=== PATIENT | female | born 1985 | race Caucasian/White ===

== ENCOUNTER 2017-08-19 09:13 | Emergency (ER) | payer BC ==
--- NOTE | 2017-08-19 09:38 | Emergency Department Record ---
History of Present Illness - General Chief Complaint: Back Pain/Injury Stated Complaint: BACK PAIN Time Seen by Provider: 08/19/17 09:26 Source: Patient - History of Present Illness Initial Comments: The patient had a rhizotomy in mid June of this year she thinks around L4- L5. She has not improved since this procedure. This morning she woke up with pain in her low back/tailbone region with no radiation down her legs, no urinary incontinence/retention, and no injury. She denies other related symptoms of f,c,URI sx, AP, flank pain. She knows she has a kidney stone, but doesn't think her pain is from that. MD Complaint: Back pain Onset/Timin -: Days(s) Similar Symptoms Previously: Yes Place: Home Severity: Severe Severity scale (1-10): 10 Quality: Aching, Sharp Consistency: Constant Improves With: None Worsens With: None Context: Unknown Associated Symptoms: Denies other symptoms - Related Data Home Medications Medication Instructions Recorded Confirmed Last Taken Atorvastatin Calcium 10 mg PO DAILY 08/19/17 08/19/17 Unknown Glyburide 5 mg PO DAILY 08/19/17 08/19/17 Unknown Lisinopril 10 mg PO DAILY 08/19/17 08/19/17 Unknown Previous Rx's Medication Instructions Recorded Cyclobenzaprine HCl [Flexeril] 10 mg PO TID #14 tablet 08/19/17 Allergies Allergy/AdvReac Type Severity Reaction Status Date / Time No Known Drug Allergies Allergy Verified 08/19/17 09:19 Travel Screening - Travel/Exposure Within Last 30 Days Have you traveled within the last 30 days?: No Review of Systems Reviewed: No additional complaints except as noted below Constitutional: Reports: As per HPI. Denies: Chills, Fever, Malaise, Night sweats, Weakness, Weight change Eyes: Reports: As per HPI. Denies: Eye discharge, Eye pain, Photophobia, Vision change ENT: Reports: As per HPI. Denies: Congestion, Dental pain, Ear pain, Epistaxis , Hearing loss, Throat pain Respiratory: Reports: As per HPI. Denies: Cough, Dyspnea, Hemoptysis, Stridor, Wheezes Cardiovascular: Reports: As per HPI. Denies: Arrhythmia, Chest pain, Dyspnea on exertion, Edema, Murmurs, Orthopnea, Palpitations, Paroxysmal nocturnal dyspnea, Rheumatic Fever, Syncope Endocrine: Reports: As per HPI. Denies: Fatigue, Heat or cold intolerance, Polydipsia, Polyuria Gastrointestinal: Reports: As per HPI. Denies: Abdominal pain, Constipation, Diarrhea, Hematemesis, Hematochezia, Melena, Nausea, Vomiting Genitourinary: Reports: As per HPI. Denies: Abnormal menses, Discharge, Dyspareunia, Dysuria, Frequency, Hematuria, Incontinence, Retention, Urgency Musculoskeletal: Reports: As per HPI. Denies: Arthralgia, Back pain, Gout, Joint swelling, Myalgia, Neck pain Skin: Reports: As per HPI. Denies: Bruising, Change in color, Change in hair/ nails, Lesions, Pruritus, Rash Neurological: Reports: As per HPI. Denies: Abnormal gait, Confusion, Headache, Numbness, Paresthesias, Seizure, Tingling, Tremors, Vertigo, Weakness Psychiatric: Reports: As per HPI. Denies: Anxiety, Auditory hallucinations, Depression, Homicidal thoughts, Suicidal thoughts, Visual hallucinations Hematological/Lymphatic: Reports: As per HPI. Denies: Anemia, Blood Clots, Easy bleeding, Easy bruising, Swollen glands Past Medical History - SOCIAL HISTORY Smoking Status: Current every day smoker Alcohol Use: Rare Drug Use: None - RESPIRATORY Hx Respiratory Disorders: No - CARDIOVASCULAR Hx Cardio Disorders: No - NEURO Hx Neuro Disorders: No - GI Hx GI Disorders: No - Hx Genitourinary Disorders: No - ENDOCRINE Hx Endocrine Disorders: Yes Hx Diabetes: Yes (type 2) - MUSCULOSKELETAL Hx Musculoskeletal Disorders: Yes Comment:: DDD, spinal stenosis, narrowing - PSYCH Hx Psych Problems: No - HEMATOLOGY/ONCOLOGY Hx Hematology/Oncology Disorders: No Family Medical History Any Significant Family History?: No Physical Exam - General General Appearance: Alert, Oriented x3, Cooperative, Moderate distress (with movement from standing to sitting to laying flat) - Head Head exam: Normal inspection - Eye Eye exam: Normal appearance, PERRL Pupils: Normal accommodation - ENT ENT exam: Normal exam, Mucous membranes moist, Normal external ear exam, Normal orophraynx, TM's normal bilaterally Ear exam: Normal external inspection. negative: External canal tenderness Nasal Exam: Normal inspection. negative: Discharge, Sinus tenderness Mouth exam: Normal external inspection, Tongue normal Teeth exam: Normal inspection. negative: Dental caries Throat exam: Normal inspection. negative: Tonsillar erythema, Tonsillar exudate - Neck Neck exam: Normal inspection, Full ROM. negative: Tenderness - Respiratory Respiratory exam: Normal lung sounds bilaterally. negative: Respiratory distress - Cardiovascular Cardiovascular Exam: Regular rate, Normal rhythm, Normal heart sounds - GI/Abdominal GI/Abdominal exam: Soft, Normal bowel sounds. negative: Tenderness - Rectal Rectal exam: Deferred - exam: Deferred - Extremities Extremities exam: Normal inspection, Full ROM, Normal capillary refill. negative: Calf tenderness, Pedal edema, Tenderness - Back Back exam: Reports: Normal inspection, Full ROM, Muscle spasm, Tenderness ( spasm and tenderness at midline L5 and sacral levels without radiation). Denies : CVA tenderness (R), CVA tenderness (L), Rash noted - Neurological Neurological exam: Abnormal gait (antalgic gait ), Alert, CN II-XII intact, Oriented X3, Reflexes normal. negative: Motor sensory deficit - Psychiatric Psychiatric exam: Normal affect, Normal mood - Skin Skin exam: Dry, Intact, Normal color, Warm Course Vital Signs 08/19/17 09:14 Temperature 97.7 F Pulse Rate 93 H Respiratory 20 Rate Blood Pressure 155/111 Pulse Ox 99 - Reevaluation(s) Reevaluation #1: Patient agrees to flexeril prescription. Blood sugar in her urine she says is because she hasn't taken her diabetic pill yet this morning. She will do that when she gets home. 08/19/17 10:37 Medical Decision Making - Management Options MDM Management: No Additional Work-up Planned - Data Complexity MDM Data: Labs Ordered and/or Reviewed (UA: glucose present otherwise negative) Disposition Disposition: Discharge Clinical Impression: Low back pain Qualifiers: Chronicity: acute Back pain laterality: midline Sciatica presence: without sciatica Qualified Code(s): M54.5 - Low back pain Disposition: Home, Self-Care Condition: (1) Good Instructions: Low Back Strain (ED) Additional Instructions: No lifting bending twisting. Flexeril as directed IF NEEDED for muscle spasm. Follow up with Dr. Ramsey as previously arranged next week. Prescriptions: Cyclobenzaprine HCl [Flexeril] 10 mg PO TID #14 tablet Quality - Quality Measures Quality Measures: N/A - Blood Pressure Screening Does Patient Have Any of the Following: No Blood Pressure Classification: Hypertensive Reading Systolic Measurement: 155 Diastolic Measurement: 111 Screening for High Blood Pressure: Patient Exclusion, Hx of HTN [S4875]
[2017-08-19 09:41] LABS: URINE APPEARANCE CLEAR; URINE BILIRUBIN NEGATIVE (NEGATIVE); URINE BLOOD NEGATIVE (NEGATIVE); URINE COLOR YELLOW; URINE KETONE NEGATIVE (NEGATIVE); URINE LEUKOCYTE ESTERASE NEGATIVE (NEGATIVE); URINE NITRITE NEGATIVE (NEGATIVE); URINE PROTEIN NEGATIVE (NEGATIVE); URINE UROBILINOGEN 0.2 E.U./dL (0.20 - 1.00)
[2017-08-19 09:45] LABS: BARBITURATE SCREEN URINE NOT DETECTED; BENZODIAZEPINE SCREEN URINE NOT DETECTED; HCG,QUALITATIVE URINE NEGATIVE (NEGATIVE); METHADONE SCREEN URINE NOT DETECTED; THC SCREEN URINE NOT DETECTED; TRICYCLIC ANTIDEPRESSANT SCRN NOT DETECTED
[2017-08-19 09:46] LABS: AMPHETAMINE SCREEN URINE NOT DETECTED; COCAINE SCREEN URINE NOT DETECTED; METHAMPHETAMINE SCREEN NOT DETECTED; OPIATE SCREEN URINE NOT DETECTED; OXYCODONE SCREEN URINE NOT DETECTED; PHENCYCLIDINE SCREEN URINE NOT DETECTED; PROPOXYPHENE SCREEN URINE NOT DETECTED
[2017-08-19] MEDS ORDERED: KETOROLAC 30 MG/ML VIAL IM ONE (10:20)
== END 2017-08-19 10:50 | disposition home or self-care (01) ==
LOC: ER 09:13
DX: M54.5 Low back pain (principal); E11.9 Type 2 diabetes mellitus without complications; I10 Essential (primary) hypertension; Z79.84 Long term (current) use of oral hypoglycemic drugs
CPT/HCPCS: 80305; 81003; 81025; 96372; 99283; 99284; J1885

== ENCOUNTER 2018-01-18 11:35 | Day surgery (SDC) | payer BC ==
--- NOTE | 2018-01-18 06:29 | History and Physical Report ---
DATE: 01/18/2018. CHIEF COMPLAINT AND HISTORY OF CHIEF COMPLAINT: This patient presents with a history of an intractable lumbar radiculopathy. Due to the failure of all therapy, a spinal cord stimulator trial was conducted on 09/26/2017 with 75 to 85 percent pain control. Due to the failure of all other therapies and the success of the trial, the patient presents today for implantation of a permanent system. PAST MEDICAL HISTORY: Hypertension. PAST SURGICAL HISTORY: section, tonsillectomy. MEDICATIONS ON ADMISSION: To be provided. ALLERGIES: None. SOCIAL HISTORY: Smoking, social alcohol, caffeine. FAMILY HISTORY: Diabetes, hypertension. REVIEW OF SYSTEMS: The patient is appropriate and in no acute distress. The remainder of the systems review is noncontributory. PHYSICAL EXAMINATION: General: Height and weight are unavailable. Vital Signs: Unavailable. HEENT: Within normal limits. Lungs: Clear. Heart: Regular rate and rhythm. Abdomen: Nontender. Musculoskeletal: Current examination shows tenderness in the lumbar spine. Range of motion does produce primary pain throughout the back and extending into both legs. Motor and sensory field evaluation is intact. There are no obvious deficits and no weakness. Ambulation: No assistive device utilized. Neurologic: Cranial nerves are intact. IMPRESSION: LUMBAR RADICULOPATHY, ICD-10 CODE M54.16 AND M54.17. PLAN: The patient is here for implantation of a permanent spinal cord stimulator after a successful trial. All of the potential risks, side effects, and complications have been carefully reviewed and discussed. The patient understands and has consented. The procedure will be considered outpatient, although an overnight stay will be evaluated. She was provided with written documentation from the multi operation forming machine setter including a CD Rom which carefully outlines the risks, side effects, and complications. She was put in contact with a b2b outside sales representative from [employer] who answered all questions and again reviewed the risks, side effects, and complications. She understands and agrees and has consented. JOB NUMBER: [id number] cc: Lesli Reina M.D. [employer]
[~2018-01-18 11:35] MED LIST: ACETAMINOPHEN 1,000 MG/100 ML BTL IV ONE; CEFAZOLIN 2 Gram 2 GM/50 ML BAG IVPB ONE; FAMOTIDINE 20MG TABLET PO ONE; MECLIZINE 25 MG TABLET PO ONE; METOCLOPRAMIDE 10 MG TABLET PO ONE
[2018-01-18] MEDS ORDERED: LIDOCAINE 2% MDV (20MG/ML) 20ML VIAL IV ONE (11:36)
[2018-01-18] MEDS ORDERED: MORPHINE SULFATE 5 MG/ML PFS IVP ONE (11:36)
[2018-01-18] MEDS ORDERED: LIDOCAINE 1% W/EPI 1:200,000 MPF 30ML SQ ONE (11:36)
[2018-01-18] MEDS ORDERED: PROPOFOL 10 MG/ML VIAL IV ONE (11:36)
[2018-01-18] MEDS ORDERED: FENTANYL PF 100MCG/2ML VIAL IV ONE (11:36)
[2018-01-18] MEDS ORDERED: BUPIVACAINE 0.5% W/EPI MPF 30 ML VIAL IVP ONE (11:36)
[2018-01-18] MEDS ORDERED: FLUMAZENIL 1MG/10ML VIAL IV ONE (11:36)
[2018-01-18] MEDS ORDERED: ONDANSETRON HCL IV 4 MG/2 ML VIAL IVP ONE (11:36)
[2018-01-18] MEDS ORDERED: MIDAZOLAM HCL 2MG/2ML VIAL IV ONE (11:36)
[2018-01-18] MEDS ORDERED: SENNOSIDES/DOCUSATE SODIUM UD CAPSULE PO PRN ×2 (15:10)
[2018-01-18] MEDS ORDERED: HYDROMORPHONE HCL 2 MG/ML VIAL IM PRN ×2 (15:10)
[2018-01-18] MEDS ORDERED: METOCLOPRAMIDE HCL 10 MG/2 ML VIAL IVP PRN (15:10)
[2018-01-18] MEDS ORDERED: OXYCODONE/APAP 10MG-325MG TABLET PO PRN ×2 (15:10)
[2018-01-18] MEDS ORDERED: TEMAZEPAM 15 MG CAPSULE PO PRN ×2 (15:10)
[2018-01-18] MEDS ORDERED: AL HYDROX/MAG HYDROX 30ML UD PO PRN (15:10)
[2018-01-18] MEDS ORDERED: ACETAMINOPHEN 325 MG TAB PO PRN ×2 (15:10)
[2018-01-18] MEDS ORDERED: METOCLOPRAMIDE 10 MG TABLET PO PRN (15:10)
[2018-01-18] MEDS ORDERED: DIPHENHYDRAMINE HCL 50 MG/ML VIAL IVP PRN ×2 (15:10)
[2018-01-18] MEDS ORDERED: HYDROCODONE/APAP 7.5/325MG TABLET PO PRN ×2 (15:10)
[2018-01-18] MEDS ORDERED: DIPHENHYDRAMINE HCL 25 MG CAPSULE PO PRN ×2 (15:10)
[2018-01-18] MEDS ORDERED: CEFAZOLIN 2 Gram 2 GM/50 ML BAG IVPB SCH (21:30)
[2018-01-18] MEDS ORDERED: 0.9 % SODIUM CHLORIDE 10ML SYR IVP SCH (22:00)
--- NOTE | 2018-01-20 21:53 | Operative Note - [facility] ---
DATE OF SURGERY: 01/18/18 PREOPERATIVE DIAGNOSES: INTRACTABLE LUMBAR RADICULOPATHY, ICD-10 CODE = M54.16 AND M54.17. SURGERY: 1. FLUOROSCOPIC-GUIDED EPIDURAL ACCESS RIGHT T11-12, PLACEMENT OF SPINAL CORD STIMULATOR LEAD 1, A [employer] INFINION 16 WITH 6 ELECTRODES POSITIONED RIGHT AT T6. 2. FLUOROSCOPIC-GUIDED EPIDURAL ACCESS RIGHT T12-L1, PLACEMENT OF SPINAL CORD STIMULATOR LEAD 2, A [employer] INF[employer] 16 WITH 6 ELECTRODES POSITIONED LEFT AT T6. 3. COMPLEX PROGRAMMING OF LEAD 1, OVER 20 MINUTES FOLLOWED BY COMPLEX PROGRAMMING OF LEAD 2, OVER 20 MINUTES. 4. INCISION, SUBCUTANEOUS DISSECTION, AND ANCHORING OF LEAD 1 AND LEAD 2 TO SUPRASPINOUS FASCIA USING A [employer] LOCKING ANCHOR. 5. INCISION, SUBCUTANEOUS DISSECTION, AND CREATION OF SUBCUTANEOUS POUCH AT RIGHT POSTERIOR GLUTEAL MARGIN FOR PLACEMENT OF GENERATOR IDENTIFIED A [employer] WAVEWR[employer]. 6. TUNNELING BETWEEN POUCHES. PLACEMENT OF EXTERNAL PORTION OF LEAD 1 AND LEAD 2 INTO GENERATOR POUCH, EACH LEAD INTERFACED TO THE GENERATOR. 7. PLACEMENT OF GENERATOR POUCH SECURING TO POSTERIOR FASCIA WITH NONABSORBABLE SUTURE. PLACEMENT OF LEADS INTO POUCH WITH CLOSURE OF BOTH INCISIONS WITH VICRYL FOR FASCIA AND A RUNNING SUTURE OF NYLON FOR SKIN. TEGADERM PLACED WITH OPSITE OVER EACH INCISION. 8. COMPLEX RECOVERY ROOM PROGRAMMING INTERNAL GENERATOR HOME USE, TWO STIMULATORS, 20 MINUTES. SURGEON: REAGAN TOMLINSON D.O. ANESTHESIA: LOCAL SEDATION. ANESTHESIA PROVIDER: RACHELLE LONG CRNA. INDICATIONS: This patient presents with a history of intractable lumbar radiculopathy. Due to the failure of all therapies and the success of a spinal cord stimulator trial, she is here for implantation of a permanent system. SURGERY: Intravenous line, vital sign monitoring, IV sedation, prepped and draped sterile technique. Patient positioned prone. Sterile prep, sterile technique. The epidural interspace right of the midline at 11-12 and 12-1 both infiltrated. Using two separate curved epidural access needles with loss-of- resistance, the epidural access was accessed. At 11, spinal cord stimulator lead 1, a [employer] Infinion 16 with 6 electrodes positioned right of the midline at T6. With epidural access at 12-1, spinal cord stimulator lead 2, a [employer] Infinion 16 with 6 electrodes positioned left of the midline at T6. Complex programming of lead 1 over 20 minutes followed by complex programming of lead 2 over 20 minutes resulting in complete patterns of stimulation across the back and into the legs. The patient indicating we were in all the right areas of the pain. She was then given the option to implant or continue to program and she opted to implant. Questions were repeated with the same response. The skin above and below both needles was infiltrated, incision made, and subcutaneous dissection was conducted to the supraspinous fascia. Each lead was then anchored to the supraspinous fascia with a [employer] locking anchor. At the right posterior gluteal margin, a site picked by the patient for the generator, skin infiltrated, incision made, and subcutaneous dissection was conducted to form a pouch of suitable size and depth for the generator identified as a [employer] WaveWriter. A tunneling tool was used to carry the leads into the generator pouch and each lead was interfaced with to the generator. Antibiotic irrigation and Bovie for hemostasis. Each lead was then coiled and placed into the pouch. They were tunneled and placed into the generator pouch. The generator and its connections were placed into its own pouch and then the incisions were both closed with Vicryl for fascia and running cuticular skin suture with nylon. Benzoin and then a Tegaderm OPSITE dressing was placed over each incision. She was transported to the Recovery Room stable, no side-effects from the procedure or the sedation. When fully awake and alert, complex programming of the generator was then performed with the two leads over 20 minutes reestablishing stimulation and pain control to all of the appropriate areas. By her request, she was prepared for discharge. DISCHARGE INSTRUCTIONS: 1. The sites will remain clean and dry. She may shower but not sit in water or bathe. Should the dressings come loose, she should contact the clinic. 2. Standard medications resumed, including Levaquin, the antibiotic 500 mg once a day for 14 days. Diflucan was requested because of a history with antibiotics. 3. The office will contact the patient at home in the next 12 to 24 hours to set up an appointment in 7 to 10 days to evaluate the sites. Until then, she should keep her activities low. At the appointment, we will remove the dressings , remove the suture, and then evaluate for increasing activities. All other instructions provided, numbers to contact if problems given. She will be discharged to home. cc: Dr. Lesli Reina JOB NUMBER: [id number] [facility]
== END 2018-01-18 18:40 | disposition home or self-care (01) ==
LOC: SUR 11:35 → MEDSURG 15:45 → SUR 18:40
PROVIDERS: ATTEND Pain Medicine Interventional Pain Medicine
DX: M54.16 Radiculopathy, lumbar region (principal); M54.17 Radiculopathy, lumbosacral region; E11.9 Type 2 diabetes mellitus without complications; Z79.84 Long term (current) use of oral hypoglycemic drugs; I10 Essential (primary) hypertension
CPT/HCPCS: 63650; 63685; 00300; 95972; 81025; 72020; J2405; J3010; J0690; J2270; C1820; C1883